=== PATIENT | female | born 1935 | race Caucasian/White ===

== ENCOUNTER 2018-05-21 21:50 | Inpatient (IN) | payer MEDICARE, OTHER ==
--- NOTE | 2018-05-21 23:19 | ULT ---
GALLBLADDER ULTRASOUND: Date: 05/21/18 HISTORY: Right upper quadrant pain. FINDINGS: Real-time imaging of the right upper quadrant demonstrates a mildly distended gallbladder. No gallsto phill are identified. Technologist reports a negative ultrasound Lucas's sign. The common duct is 3.0 mm. Liver measures 17.0 cm in length. The pancreas is obscured. The right kidney is not obstructed. IMPRESSION: No evidence of gallstones. POS: SHELDON
[2018-05-21] MEDS ORDERED: cefTRIAXone\\ROCEPHIN 1 GM VIAL ONE (23:55)
[2018-05-21] MEDS ORDERED: Sodium Chloride 0.9% 100 ML ONE (23:55)
[2018-05-22] MEDS ORDERED: Ondansetron PF 4 MG/2 ML Vial IVP PRN (00:56)
[2018-05-22] MEDS ORDERED: Ondansetron ODT 4 MG TAB PO PRN (00:56)
[2018-05-22 01:31] LABS: HBCM Index 0.08 S/CO (0-0.79); HBSAg Index 0.35 S/CO (0-0.99); Hep A IgM AB Non-Reactive (NonReactive); Hep A IgM S/CO 0.18 S/CO (0-0.79); Hep B Surf Ag Non-Reactive S/CO (NonReactive); Hep C IgG Ab Non-Reactive (NonReactive); Hep C Index 0.05 S/CO (0-0.79); Hepatitis B Core IgM Abs Non-Reactive (NonReactive)
[2018-05-22 01:48] VITALS: BMI 22.1
[2018-05-22] MEDS ORDERED: Prevnar 13-Val Conj/PF 0.5 ML SYRINGE IM ONE (02:15)
[2018-05-22] MEDS: Levothyroxine 100 MCG SDV IVP SCH (05:47)
[2018-05-22] MEDS: Enoxaparin Sodium 30 MG/0.3 ML SYRINGE SC SCH (07:53)
[2018-05-22 08:36] LABS: #Eosinphils 0.1 thou/uL (0.0-0.7); #Lymphocytes 1.1 thou/uL (1.20-3.40); #Monocytes 0.5 thou/uL (0.11-0.59); #Neutrophils 4.1 thou/uL (1.40-6.50); %Basophils 0.7 % (0.0-1.0); %Eosinophils 2.5 % (0.0-10.0); %Lymphocytes 18.9 % (21.0-51.0); %Monocytes 7.8 % (0.0-10.0); %Neutrophils 70.1 % (42.0-75.0); Hemoglobin 12.4 g/dL (12.0-16.0); Mean Corpuscular HGB CONC 32.4 g/dL (32.0-36.0); Mean Corpuscular Hemoglobin 30.3 pg (27.0-31.0); Mean Corpuscular Volume 93.7 fL (78.0-98.0); Platelet Count 196 thou/uL (130-400); White Blood Cell (WBC) Count 5.8 thou/uL (4.8-10.8)
[2018-05-22 08:57] LABS: Anion Gap 15 mmol/L (10-20); BUN (Urea Nitrogen) 18 mg/dL (9.8-20.1); Calc. Creatinine Clearance 36 mL/min (70-130); Calcium 9.8 mg/dL (7.8-10.44); Carbon Dioxide 23 mmol/L (23-31); Chloride 110 mmol/L (98-107); Estimated GFR-MDRD 40; Glucose 88 mg/dL (83-110); Potassium 3.6 mmol/L (3.5-5.1); Sodium 144 mmol/L (136-145)
--- NOTE | 2018-05-22 09:53 | HP ---
PRIMARY CARE DOCTOR: TIME OF EVALUATION: 1 a.m. CODE STATUS: Full code. CHIEF COMPLAINT: Change in mental status. HISTORY OF PRESENT ILLNESS: This is an 82-year-old female patient with past medical history of hypothyroidism, GERD, hypertension, COPD, and dementia, came to the hospital, transferred from [place]. The patient has an episode of change in mental status. Symptoms, as per report, have been getting worse recently. Also, she was found to have high LFTs, urinary tract infections. The patient is unable to give any history. This information has been gathered from ER physician and nursing staff and records. No clear triggers, no alleviating factors. She was found to have a high TSH also. Symptoms are generalized and constant. REVIEW OF SYSTEMS: Unable to obtain. The patient does not cooperate with review. PAST MEDICAL HISTORY/PERSONAL HISTORY: As reported in the HPI. PSYCH HISTORY: Depression, dementia. FAMILY HISTORY: Reviewed and non contributory to current presentation. SOCIAL HISTORY: The patient drinks socially. No drugs. The patient quit smoking more than 10 years ago. ALLERGIES: NO KNOWN DRUG ALLERGIES. REPORTED MEDICATIONS: Unknown. PHYSICAL EXAMINATION: VITAL SIGNS: On presentation, blood pressure 153/78 with heart rate 72, respiratory rate was 16, temperature 97.8, oxygen saturation was 98%. GENERAL APPEARANCE: The patient is lethargic, can answer very simple questions, not great in conversation, disoriented. HEENT: Eyes, normal conjunctivae. Moist oral mucosa. Anicteric. No JVD. RESPIRATORY: Bilateral air entry. No rales. No wheezes. Symmetric expansion. CARDIOVASCULAR: Normal rate, regular rhythm. No murmurs. No gallop. No edema. ABDOMEN: Soft. Normal bowel sounds. MUSCULOSKELETAL: Baseline range of motion and strength. No tenderness. SKIN: Warm, intact. No pallor. No rash. No redness. Peripheral pulses are present. Capillary refill seems to be intact. NEURO: Unable to fully explore. The patient does not cooperate. Does not seems to have any new focal weakness. PSYCH: Unable to explore. The patient is lethargic. DIAGNOSTIC DATA: Abdominal ultrasound was done, it showed no evidence of gallstones. No significant abnormalities. LABORATORY DATA: Labs were reviewed. The patient has a white count of 8, hemoglobin 13.7, MCV 91, platelet count 219. Sodium 145, potassium 3.2, chloride 103, carbon dioxide 25, anion gap 20, BUN 19, creatinine 1.52. Previous admissions, creatinine was 1.3. GFR 33, glucose 144. Lactic acid 0.9. Calcium 11.2, magnesium 3.1. Total bilirubin 0.4, AST 256, ALT 233, alkaline phosphatase 88. Troponin was negative. Serum total protein 9.1, albumin 5.0, globulin 3.1. TSH was 73. Urine was done, and the patient has greater than 50 too numerous to count white count with __ positive leukocyte esterase. Serology for hepatitis was negative. ASSESSMENT AND PLAN: The patient will be placed in the hospital with following medical problems: 1. Acute encephalopathy and also she has dementia. This is a new finding that has been getting worse as per history reported from ER and in records. This seems to be multifactorial. The patient has underlying urinary tract infection and also has a very elevated TSH, could be due to severe hypothyroidism. 2. Severe hypothyroidism. There is no evidence of bradycardia, hypotension, hypothermia, and other factors, so this remains in the differential , we will restart levothyroxine IV for now and then this can be adjusted once the patient is more improved. 3. High liver function tests with AST 256, ALT 233, unclear etiology. Hepatitis panel is negative. Ultrasound is negative. We will monitor. We will treat accordingly. 4. Urinary tract infection with very positive urine. The patient has been started on antibiotics. We will continue for now. Follow cultures. Adjust treatment as per sensitivity. 5. Hyperglycemia of 144, no history of diabetes reported. We will monitor. Could be secondary to poor glucose tolerance. 6. Chronic kidney disease stage 3. The patient has a GFR of 33 and creatinine 1.5. We will monitor kidney function. We will treat accordingly. Might need Nephrology if no improvement. 7. Hypokalemia. Potassium 3.2. We will replace electrolytes as needed. 8. Underlying dementia, unclear how much deterioration of mental status the patient has at this point due to unknown baseline. 9. Deep venous thrombosis prophylaxis. Job ID: [id number] [facility]
[2018-05-22] MEDS: Acetaminophen 325 MG TAB PO PRN (16:05)
--- NOTE | 2018-05-22 16:22 | PDOC.EVN ---
Event Note - Event Note Event Note: Chart reviewed. Pt seen. Feels better, will follow. Continue antibiotics for UTI.
[2018-05-22] MEDS: cefTRIAXone\\ROCEPHIN 1 GM in Sodium Chloride 0.9% 100 ML IVPB SCH (23:33)
[2018-05-23] MEDS: Levothyroxine 100 MCG SDV IVP SCH (05:53)
[2018-05-23] MEDS: Enoxaparin Sodium 30 MG/0.3 ML SYRINGE SC SCH (07:38)
[2018-05-23] MEDS: Acetaminophen 325 MG TAB PO PRN (13:51)
--- NOTE | 2018-05-23 14:10 | PDOC.PN ---
- Subjective Encounter Start Date: 05/23/18 Encounter Start Time: 09:40 Pt seen for followup re: UTI. Feels better. - Objective Resuscitation Status - Order Detail: 05/22/18 00:56 Resuscitation Status Routine Resuscitation Status: FULL: Full Resuscitation MAR Reviewed: Yes Vital Signs & Weight: Vital Signs (12 hours) Temp Pulse Resp BP Pulse Ox 05/23/18 08:00 97 05/23/18 07:41 99.2 F 70 18 159/89 H 97 Weight Weight 141 lb 1.533 oz I&O: 05/22/18 05/23/18 05/24/18 06:59 06:59 06:59 Intake Total 1110 480 Balance 1110 480 Result Diagrams: 05/22/18 08:06 05/22/18 08:06 Additional Labs: labs reviewed by me Phys Exam - Physical Examination Constitutional: NAD HEENT: moist MMs Neck: supple Respiratory: clear to auscultation bilateral Cardiovascular: RRR Gastrointestinal: positive bowel sounds Neurological: moves all 4 limbs Psychiatric: normal affect Dx/Plan (1) UTI (urinary tract infection) Status: Acute Comment: Urine cultures not sent yet, continue antibiotics (2) Acute metabolic encephalopathy Code(s): G93.41 - METABOLIC ENCEPHALOPATHY Status: Acute Comment: Improved (3) Hypothyroidism Code(s): E03.9 - HYPOTHYROIDISM, UNSPECIFIED Status: Chronic Comment: check free T3, free T4 - Plan * . Review of Systems - Review of Systems Cardiovascular: negative: chest pain, palpitations, orthopnea, paroxysmal nocturnal dyspnea, edema, light headedness Gastrointestinal: negative: Nausea, Vomiting, Abdominal Pain, Diarrhea, Constipation, Melena, Hematochezia - Medications/Allergies Allergies/Adverse Reactions: Allergies Allergy/AdvReac Type Severity Reaction Status Date / Time No Known Drug Allergies Allergy Verified 05/22/18 03:24 Medications: Current Medications Acetaminophen (Tylenol) 650 mg PO Q4H PRN PRN Reason: Headache/Fever/Mild Pain (1-3) Last Admin: 05/23/18 13:51 Dose: 650 mg Enoxaparin Sodium (Lovenox) 30 mg SC 0900 [facility] Last Admin: 05/23/18 07:38 Dose: 30 mg Ceftriaxone Sodium 1 gm/ (Sodium Chloride) 100 mls @ 200 mls/hr IVPB Q24HR [facility] Last Admin: 05/22/18 23:33 Dose: 100 mls Levothyroxine Sodium (Synthroid) 50 mcg IVP 0600 [facility] Last Admin: 05/23/18 05:53 Dose: 50 mcg Ondansetron HCl (Zofran Odt) 4 mg PO Q6H PRN PRN Reason: Nausea/Vomiting Ondansetron HCl (Zofran) 4 mg IVP Q6H PRN PRN Reason: Nausea/Vomiting
[2018-05-23 22:52] LABS: Free T4 (Free Thyroxine) Less than 0.40 ng/dL (0.70-1.48)
[2018-05-24] MEDS: cefTRIAXone\\ROCEPHIN 1 GM in Sodium Chloride 0.9% 100 ML IVPB SCH (01:25)
[2018-05-24] MEDS: Levothyroxine 100 MCG SDV IVP SCH (05:45)
[2018-05-24] MEDS: Enoxaparin Sodium 30 MG/0.3 ML SYRINGE SC SCH (08:46)
[2018-05-24 09:51] LABS: #Eosinphils 0.2 thou/uL (0.0-0.7); #Monocytes 0.4 thou/uL (0.11-0.59); #Neutrophils 3.2 thou/uL (1.40-6.50); %Basophils 0.6 % (0.0-1.0); %Eosinophils 3.4 % (0.0-10.0); %Lymphocytes 21.3 % (21.0-51.0); %Monocytes 8.5 % (0.0-10.0); %Neutrophils 66.2 % (42.0-75.0); Hemoglobin 13.3 g/dL (12.0-16.0); Mean Corpuscular HGB CONC 32.8 g/dL (32.0-36.0); Mean Corpuscular Hemoglobin 30.5 pg (27.0-31.0); Mean Platelet Volume 7.8 fL (7.4-10.4); Platelet Count 200 thou/uL (130-400); RBC Distribution Width 13.2 % (11.5-14.5); Red Blood Cell (RBC) Count 4.35 mill/uL (4.20-5.40); White Blood Cell (WBC) Count 4.8 thou/uL (4.8-10.8)
[2018-05-24 10:14] LABS: ALT (SGPT) 162 U/L (8-55); AST (SGOT) 110 U/L (5-34); Albumin 4.4 g/dL (3.4-4.8); Alkaline Phosphatase 67 U/L (40-150); Anion Gap 18 mmol/L (10-20); BUN (Urea Nitrogen) 15 mg/dL (9.8-20.1); Bilirubin, Total 0.4 mg/dL (0.2-1.2); Calc. Creatinine Clearance 41 mL/min (70-130); Calcium 9.9 mg/dL (7.8-10.44); Carbon Dioxide 23 mmol/L (23-31); Chloride 103 mmol/L (98-107); Estimated GFR-MDRD 47; Globulin 2.9 g/dL (2.4-3.5); Glucose 111 mg/dL (83-110); Potassium 3.7 mmol/L (3.5-5.1); Protein, Total 7.3 g/dL (6.0-8.3); Sodium 140 mmol/L (136-145)
--- NOTE | 2018-05-24 13:13 | PDOC.PN ---
- Subjective Encounter Start Date: 05/24/18 Encounter Start Time: 09:20 Pt seen for followup re; UTI. feels well. - Objective Resuscitation Status - Order Detail: 05/22/18 00:56 Resuscitation Status Routine Resuscitation Status: FULL: Full Resuscitation MAR Reviewed: Yes Vital Signs & Weight: Weight Weight 141 lb 1.533 oz I&O: 05/23/18 05/24/18 05/25/18 06:59 06:59 06:59 Intake Total 1110 1310 Balance 1110 1310 Result Diagrams: 05/24/18 09:32 05/24/18 09:32 Additional Labs: labs reviwed by me Phys Exam - Physical Examination Constitutional: NAD HEENT: moist MMs Neck: supple Respiratory: clear to auscultation bilateral Cardiovascular: RRR Gastrointestinal: soft Neurological: moves all 4 limbs Psychiatric: normal affect Dx/Plan (1) UTI (urinary tract infection) Status: Acute Comment: continue ceftriaxone, await urine culture (sent after abx started) (2) Acute metabolic encephalopathy Code(s): G93.41 - METABOLIC ENCEPHALOPATHY Status: Acute Comment: Improved (3) Hypothyroidism Code(s): E03.9 - HYPOTHYROIDISM, UNSPECIFIED Status: Chronic Comment: continue synthroid - Plan * . Review of Systems - Review of Systems Respiratory: negative: Cough, Shortness of Breath, SOB with Excertion, Pleuritic Pain, Wheezing Cardiovascular: negative: chest pain, palpitations, orthopnea, paroxysmal nocturnal dyspnea, edema, light headedness - Medications/Allergies Allergies/Adverse Reactions: Allergies Allergy/AdvReac Type Severity Reaction Status Date / Time No Known Drug Allergies Allergy Verified 05/22/18 03:24 Medications: Current Medications Acetaminophen (Tylenol) 650 mg PO Q4H PRN PRN Reason: Headache/Fever/Mild Pain (1-3) Last Admin: 05/23/18 13:51 Dose: 650 mg Enoxaparin Sodium (Lovenox) 30 mg SC 0900 [facility] Last Admin: 05/24/18 08:46 Dose: 30 mg Ceftriaxone Sodium 1 gm/ (Sodium Chloride) 100 mls @ 200 mls/hr IVPB Q24HR [facility] Last Admin: 05/24/18 01:25 Dose: 100 mls Levothyroxine Sodium (Synthroid) 50 mcg IVP 0600 [facility] Last Admin: 05/24/18 05:45 Dose: 50 mcg Ondansetron HCl (Zofran Odt) 4 mg PO Q6H PRN PRN Reason: Nausea/Vomiting Ondansetron HCl (Zofran) 4 mg IVP Q6H PRN PRN Reason: Nausea/Vomiting
[2018-05-25] MEDS: cefTRIAXone\\ROCEPHIN 1 GM in Sodium Chloride 0.9% 100 ML IVPB SCH (00:14)
[2018-05-25] MEDS: Levothyroxine 100 MCG SDV IVP SCH (05:42)
[2018-05-25 06:09] LABS: #Basophils 0.1 thou/uL (0.0-0.2); #Eosinphils 0.2 thou/uL (0.0-0.7); #Lymphocytes 1.3 thou/uL (1.20-3.40); #Monocytes 0.5 thou/uL (0.11-0.59); #Neutrophils 3.5 thou/uL (1.40-6.50); %Basophils 1.1 % (0.0-1.0); %Eosinophils 4.1 % (0.0-10.0); %Lymphocytes 23.9 % (21.0-51.0); %Monocytes 8.7 % (0.0-10.0); %Neutrophils 62.3 % (42.0-75.0); Hemoglobin 13.1 g/dL (12.0-16.0); Mean Corpuscular HGB CONC 33.3 g/dL (32.0-36.0); Mean Corpuscular Hemoglobin 31.3 pg (27.0-31.0); Mean Corpuscular Volume 94.2 fL (78.0-98.0); Mean Platelet Volume 7.6 fL (7.4-10.4); Platelet Count 191 thou/uL (130-400); RBC Distribution Width 13.1 % (11.5-14.5); Red Blood Cell (RBC) Count 4.19 mill/uL (4.20-5.40); White Blood Cell (WBC) Count 5.6 thou/uL (4.8-10.8)
[2018-05-25 06:33] LABS: ALT (SGPT) 179 U/L (8-55); AST (SGOT) 134 U/L (5-34); Albumin 4.5 g/dL (3.4-4.8); Alkaline Phosphatase 68 U/L (40-150); Anion Gap 15 mmol/L (10-20); BUN (Urea Nitrogen) 14 mg/dL (9.8-20.1); Bilirubin, Total 0.3 mg/dL (0.2-1.2); Calc. Creatinine Clearance 41 mL/min (70-130); Calcium 9.6 mg/dL (7.8-10.44); Carbon Dioxide 27 mmol/L (23-31); Chloride 103 mmol/L (98-107); Estimated GFR-MDRD 48; Globulin 2.5 g/dL (2.4-3.5); Glucose 83 mg/dL (83-110); Potassium 3.5 mmol/L (3.5-5.1); Sodium 141 mmol/L (136-145)
[2018-05-25] MEDS: Enoxaparin Sodium 30 MG/0.3 ML SYRINGE SC SCH (09:05)
--- NOTE | 2018-05-25 16:32 | PDOC.PN ---
- Subjective Encounter Start Date: 05/25/18 Encounter Start Time: 08:20 Pt seen for followup re; acute metabolic encephalopathy. Feels well. - Objective Resuscitation Status - Order Detail: 05/22/18 00:56 Resuscitation Status Routine Resuscitation Status: FULL: Full Resuscitation MAR Reviewed: Yes Vital Signs & Weight: Vital Signs (12 hours) Temp Pulse Resp BP Pulse Ox 05/25/18 12:25 99.0 F 70 18 167/88 H 96 05/25/18 08:00 96 05/25/18 07:26 98.0 F 67 18 130/80 96 Weight Weight 141 lb 1.533 oz I&O: 05/24/18 05/25/18 05/26/18 06:59 06:59 06:59 Intake Total 1310 1080 Balance 1310 1080 Result Diagrams: 05/25/18 05:53 05/25/18 05:53 Additional Labs: Labs reviewed by me Phys Exam - Physical Examination Constitutional: NAD HEENT: moist MMs Neck: supple Cardiovascular: RRR Gastrointestinal: soft Neurological: moves all 4 limbs Psychiatric: normal affect Dx/Plan (1) Acute metabolic encephalopathy Code(s): G93.41 - METABOLIC ENCEPHALOPATHY Status: Acute Comment: Improved, ? secondary to hypothyroidism (2) Hypothyroidism Code(s): E03.9 - HYPOTHYROIDISM, UNSPECIFIED Status: Chronic Comment: on synthroid (3) UTI (urinary tract infection) Status: Resolved Comment: final urine culture negative, discontinue antibiotics and observe - Plan * . Review of Systems - Review of Systems Cardiovascular: negative: chest pain, palpitations, orthopnea, paroxysmal nocturnal dyspnea, edema, light headedness Gastrointestinal: negative: Nausea, Vomiting, Abdominal Pain, Diarrhea, Constipation, Melena, Hematochezia - Medications/Allergies Allergies/Adverse Reactions: Allergies Allergy/AdvReac Type Severity Reaction Status Date / Time No Known Drug Allergies Allergy Verified 05/22/18 03:24 Medications: Current Medications Acetaminophen (Tylenol) 650 mg PO Q4H PRN PRN Reason: Headache/Fever/Mild Pain (1-3) Last Admin: 05/23/18 13:51 Dose: 650 mg Enoxaparin Sodium (Lovenox) 30 mg SC 0900 [facility] Last Admin: 05/25/18 09:05 Dose: 30 mg Ceftriaxone Sodium 1 gm/ (Sodium Chloride) 100 mls @ 200 mls/hr IVPB Q24HR [facility] Last Admin: 05/25/18 00:14 Dose: 100 mls Levothyroxine Sodium (Synthroid) 50 mcg IVP 0600 [facility] Last Admin: 05/25/18 05:42 Dose: 50 mcg Ondansetron HCl (Zofran Odt) 4 mg PO Q6H PRN PRN Reason: Nausea/Vomiting Ondansetron HCl (Zofran) 4 mg IVP Q6H PRN PRN Reason: Nausea/Vomiting
[2018-05-25 20:17] VITALS: TEMP 98.1
[2018-05-26] MEDS: Levothyroxine 100 MCG SDV IVP SCH (06:25)
[2018-05-26 07:24] VITALS: BP 157/82
[2018-05-26] MEDS: Enoxaparin Sodium 30 MG/0.3 ML SYRINGE SC SCH (07:59)
[2018-05-26 08:09] LABS: #Basophils 0.1 thou/uL (0.0-0.2); #Eosinphils 0.2 thou/uL (0.0-0.7); #Lymphocytes 1.2 thou/uL (1.20-3.40); #Monocytes 0.5 thou/uL (0.11-0.59); #Neutrophils 3.6 thou/uL (1.40-6.50); %Basophils 1.6 % (0.0-1.0); %Eosinophils 4.4 % (0.0-10.0); %Lymphocytes 21.9 % (21.0-51.0); %Monocytes 8.5 % (0.0-10.0); %Neutrophils 63.6 % (42.0-75.0); Hemoglobin 13.3 g/dL (12.0-16.0); Mean Corpuscular HGB CONC 32.8 g/dL (32.0-36.0); Mean Corpuscular Hemoglobin 30.7 pg (27.0-31.0); Mean Corpuscular Volume 93.5 fL (78.0-98.0); Mean Platelet Volume 7.9 fL (7.4-10.4); Platelet Count 195 thou/uL (130-400); RBC Distribution Width 13.2 % (11.5-14.5); Red Blood Cell (RBC) Count 4.35 mill/uL (4.20-5.40); White Blood Cell (WBC) Count 5.6 thou/uL (4.8-10.8)
[2018-05-26 08:36] LABS: ALT (SGPT) 190 U/L (8-55); AST (SGOT) 132 U/L (5-34); Albumin 4.5 g/dL (3.4-4.8); Alkaline Phosphatase 68 U/L (40-150); Anion Gap 13 mmol/L (10-20); BUN (Urea Nitrogen) 16 mg/dL (9.8-20.1); Bilirubin, Total 0.4 mg/dL (0.2-1.2); Calc. Creatinine Clearance 39 mL/min (70-130); Calcium 10.2 mg/dL (7.8-10.44); Carbon Dioxide 28 mmol/L (23-31); Chloride 104 mmol/L (98-107); Estimated GFR-MDRD 45; Globulin 2.8 g/dL (2.4-3.5); Glucose 104 mg/dL (83-110); Potassium 3.8 mmol/L (3.5-5.1); Protein, Total 7.3 g/dL (6.0-8.3); Sodium 141 mmol/L (136-145)
--- NOTE | 2018-05-26 22:55 | DIS ---
DATE OF ADMISSION: 05/21/2018 DATE OF DISCHARGE: 05/26/2018 PRIMARY CARE PROVIDER: Dr. Denver Kaur. DISCHARGE DIAGNOSES: 1. Acute metabolic encephalopathy. 2. Hypothyroidism. 3. Urinary tract infection, suspected. 4. Transaminitis. 5. Acute kidney injury. CONDITION OF PATIENT ON THE DAY OF DISCHARGE: Stable. I assessed Ms. Gomez on the day of discharge. She denies any chest pain or shortness of breath. Vital signs are stable. S1 and S2 are heard, regular. Lungs are clear to auscultation bilaterally. DISCHARGE MEDICATIONS: Synthroid 50 mcg daily. HOSPITAL COURSE: Ms. Gomez is a pleasant 82-year-old lady, who was admitted to [facility] on May 22, 2018, for acute metabolic encephalopathy, likely secondary to urinary tract infection. She was treated with empiric intravenous antibiotics. Urine cultures were not sent at the time of admission. They were subsequently sent, but did not show any growth at 48 hours. She improved clinically. She was also found to be hypothyroid with a TSH of 73.34, free T4 less than 0.4, and free T3 less than 1. She also had transaminitis with AST 132 and ALT 190. She was advised to have her LFTs and creatinine rechecked in 3 to 5 days time. She was admitted with a creatinine level of 1.52. It improved to 1.17 on the day of discharge. She had hepatitis serologies done at the time of admission, which was negative. She is being discharged home in a stable condition. She plans to seek long-term care placement following discharge. Many thanks for allowing me to participate in your patient's care. Please feel free to contact me with any questions or concerns. On the day of discharge, she has sodium 141, potassium 3.8, creatinine 1.17, AST 132, ALT 190. White count 5600, hemoglobin 13.3, and platelet count 195,000. DISCHARGE DESTINATION: Home. TIME SPENT: Total amount of time spent coordinating this discharge: 33 minutes. Job ID: [id number]
== END 2018-05-26 16:03 | disposition home or self-care (01) | DRG 689 ==
LOC: ERS 21:50 → T4-A 23:48
PROVIDERS: ADMIT Hospitalist; ATTEND Hospitalist
DX: N39.0 Urinary tract infection, site not specified (principal); G93.41 Metabolic encephalopathy; N17.9 Acute kidney failure, unspecified; G93.40 Encephalopathy, unspecified; F03.90 Unspecified dementia, unspecified severity, without behavioral disturbance, psychotic disturbance, mood disturbance, and anxiety; E03.9 Hypothyroidism, unspecified; R73.9 Hyperglycemia, unspecified; K21.9 Gastro-esophageal reflux disease without esophagitis; J44.9 Chronic obstructive pulmonary disease, unspecified; F32.9 Major depressive disorder, single episode, unspecified; N18.3 Chronic kidney disease, stage 3 (moderate); E87.6 Hypokalemia; R74.0 Nonspecific elevation of levels of transaminase and lactic acid dehydrogenase [LDH]; Z87.891 Personal history of nicotine dependence
CPT/HCPCS: 36415; 76705; 80048; 80053; 80074; 84439; 84481; 85025; 87086; 96365; J0696; J1650; J7050

== ENCOUNTER 2020-06-07 04:01 | Inpatient (IN) | payer MEDICARE, MEDICAID ==
[2020-06-07] MEDS ORDERED: Ketamine 50 MG/ML (10ML VIAL) ONE (04:38)
[2020-06-07] MEDS ORDERED: Fentanyl 100 MCG/2 ML VIAL ONE (06:05)
[2020-06-07] MEDS ORDERED: Ondansetron ODT 4 MG TAB PO PRN (06:40)
[2020-06-07] MEDS ORDERED: Dextrose 5% in Water 1,000 ML IV PRN (06:40)
[2020-06-07] MEDS ORDERED: Morphine 2 MG/ML VIAL SLOW IVP PRN (06:40)
[2020-06-07] MEDS ORDERED: hydrALAZINE 20 MG/ML VIAL SLOW IVP PRN (06:40)
[2020-06-07] MEDS ORDERED: Ondansetron PF 4 MG/2 ML Vial IVP PRN (06:40)
[2020-06-07] MEDS ORDERED: Dextrose 50% Abboject 50 ML SYRINGE SLOW IVP PRN (06:40)
[2020-06-07] MEDS ORDERED: traMADol HCl 50 MG TAB PO PRN (06:47)
[2020-06-07] MEDS ORDERED: Cyclobenzaprine 10 MG TAB PO PRN (06:47)
[2020-06-07] MEDS ORDERED: Ibuprofen 200 MG TAB PO PRN (07:10)
[2020-06-07 07:11] LABS: SARS-CoV-2 NAA Rapid Test Not Detected (NotDetected)
[2020-06-07] MEDS ORDERED: Potassium Chloride 40 MEQ in Sodium Chloride 0.9% 250 ML 250 ML IVPB SCH (07:15)
[2020-06-07] MEDS ORDERED: hydrALAZINE 20 MG/ML VIAL ONE (07:27)
[2020-06-07] MEDS ORDERED: Potassium Chloride 20 MEQ/100 ML PREMIX BAG ONE (07:27)
[2020-06-07] MEDS: Sodium Chloride 0.9% 1,000 ML IV SCH ×2 (07:35→18:45)
[2020-06-07] MEDS ORDERED: CEFAZOLIN 2 GM in Premix Bag 1 BAG IVPB SCH (07:45)
[2020-06-07] MEDS: Senokot S 8.6-50 MG TAB PO SCH ×2 (08:14→20:56)
[2020-06-07] MEDS: Polyethylene Glycol 3350 17 GM Packet PO SCH (08:14)
[2020-06-07] MEDS ORDERED: traMADol HCl 50 MG TAB ONE (08:17)
[2020-06-07] MEDS ORDERED: Acetaminophen 500 MG TAB ONE (08:18)
[2020-06-07] MEDS: Acetaminophen 500 MG TAB PO SCH ×3 (08:24→20:56)
[2020-06-07] MEDS: traMADol HCl 50 MG TAB PO SCH ×3 (08:25→21:00)
[2020-06-07] MEDS ORDERED: Lidocaine 1% PF 5 ML VIAL ONE (09:17)
[2020-06-07] MEDS ORDERED: PROPOFOL 200 MG/20 ML VIAL ONE (09:17)
[2020-06-07] MEDS ORDERED: Glycopyrrolate 0.2 MG/ML 5 ML SYRINGE ONE (09:17)
[2020-06-07] MEDS ORDERED: Rocuronium Bromide 10 MG/ML (10ML VIAL) ONE (09:17)
[2020-06-07] MEDS ORDERED: PHENYLEPHRINE-NS 100 MCG/ML 10 ML SYRINGE ONE (09:17)
[2020-06-07] MEDS: Famotidine 20 MG TAB PO SCH ×2 (10:35→20:56)
[2020-06-07] MEDS ORDERED: Promethazine HCl 25 MG/ML VIAL SLOW IVP PRN (15:11)
[2020-06-07] MEDS ORDERED: Promethazine HCl 25 MG/ML VIAL IM PRN (15:11)
[2020-06-07] MEDS ORDERED: PACU-Morphine 4MG/ML VIAL SLOW IVP PRN (15:11)
[2020-06-07] MEDS ORDERED: Ondansetron HCl/PF 4 MG/2 ML Vial IVP PRN (15:11)
[2020-06-07] MEDS ORDERED: Phenylephrine 1% Nasal Spray 15 ML BOT ONE (17:51)
[2020-06-07] MEDS ORDERED: Lactated Ringer's 250 ML IV SCH (19:00)
[2020-06-07] MEDS ORDERED: PHENYLEPHRINE-NS 100 MCG/ML 10 ML SYRINGE IVP SCH (19:00)
[2020-06-07] MEDS: CEFAZOLIN 2 GM in Premix Bag 1 BAG IVPB SCH (20:53)
[2020-06-08 00:23] VITALS: BMI 26.6
[2020-06-08] MEDS: CEFAZOLIN 2 GM in Premix Bag 1 BAG IVPB SCH ×2 (03:47→14:23)
[2020-06-08] MEDS: Sodium Chloride 0.9% 1,000 ML IV SCH ×2 (03:47→16:44)
[2020-06-08] MEDS: Acetaminophen 500 MG TAB PO SCH ×5 (03:48→20:19)
[2020-06-08] MEDS: traMADol HCl 50 MG TAB PO SCH ×5 (03:48→20:19)
[2020-06-08] MEDS: Levothyroxine Sodium 125 MCG TAB PO SCH (05:52)
[2020-06-08 06:14] LABS: Hemoglobin 9.4 g/dL (12.0-16.0); Mean Corpuscular HGB CONC 31.6 g/dL (32.0-36.0); Mean Corpuscular Hemoglobin 30.5 pg (27.0-31.0); Mean Corpuscular Volume 96.7 fL (78.0-98.0); Mean Platelet Volume 7.8 fL (7.4-10.4); Platelet Count 140 thou/uL (130-400); RBC Distribution Width 12.9 % (11.5-14.5); Red Blood Cell (RBC) Count 3.07 mill/uL (4.20-5.40); White Blood Cell (WBC) Count 7.3 thou/uL (4.8-10.8)
[2020-06-08 06:40] LABS: Anion Gap 14 mmol/L (10-20); BUN (Urea Nitrogen) 13 mg/dL (9.8-20.1); Calc. Creatinine Clearance 52 mL/min (70-130); Calcium 8.3 mg/dL (7.8-10.44); Carbon Dioxide 21 mmol/L (23-31); Chloride 107 mmol/L (98-107); Glucose 125 mg/dL (83-110); Magnesium 1.8 mg/dL (1.6-2.6); Phosphorus 3.5 mg/dL (2.3-4.7); Potassium 3.9 mmol/L (3.5-5.1); Sodium 138 mmol/L (136-145)
[2020-06-08] MEDS ORDERED: Aspirin 81 mg Enteric Coated Tablet PO SCH (09:00)
[2020-06-08] MEDS: Senokot S 8.6-50 MG TAB PO SCH ×2 (10:00→20:13)
[2020-06-08] MEDS: Losartan 25 MG TAB PO SCH (10:00)
[2020-06-08] MEDS: Polyethylene Glycol 3350 17 GM Packet PO SCH (10:00)
[2020-06-08] MEDS: Famotidine 20 MG TAB PO SCH ×2 (10:00→20:14)
[2020-06-08] MEDS: Citalopram 20 MG TAB PO SCH (10:01)
[2020-06-08] MEDS: Divalproex Sodium 250 MG (DR) TAB PO SCH ×4 (10:02→20:19)
[2020-06-08] MEDS ORDERED: Sodium Chloride 0.9% 1,000 ML IV SCH (14:45)
[2020-06-08] MEDS ORDERED: Sodium Chloride 0.9% 500 ML IVPB SCH (18:45)
[2020-06-08 20:43] LABS: Bilirubin Negative (Negative); Blood, Urine 3+ (Negative); Clarity Turbid (Clear); Glucose, Urine (Dipstick) Normal (Negative); Ketone, Urine Trace mg/dL (Negative); Leukocyte 25 Leu/uL (Negative); Nitrite Negative (Negative); Protein, Urine (Dipstick) 100 mg/dL (Neg-Trace); RBC/HPF Greater than 50 HPF (0-3); Specific Gravity, Urine 1.043 (1.002-1.036); Squamous Epithelial None Seen HPF (0-3); Urobilinogen Normal mg/dL (Less than 2); WBC/HPF 21-50 HPF (0-3)
[2020-06-08 20:54] LABS: Bacteria/HPF Rare-Few HPF (None Seen)
[2020-06-09] MEDS: traMADol HCl 50 MG TAB PO SCH ×4 (03:26→21:01)
[2020-06-09] MEDS: Acetaminophen 500 MG TAB PO SCH ×4 (03:26→20:59)
[2020-06-09] MEDS: Levothyroxine Sodium 125 MCG TAB PO SCH ×2 (05:42→09:14)
[2020-06-09 05:56] LABS: #Eosinphils 0.2 thou/uL (0.0-0.7); #Lymphocytes 1.4 thou/uL (1.20-3.40); #Monocytes 1.1 thou/uL (0.11-0.59); %Basophils 0.2 % (0.0-1.0); %Eosinophils 2.6 % (0.0-10.0); %Lymphocytes 15.6 % (21.0-51.0); %Monocytes 12.6 % (0.0-10.0); Mean Corpuscular HGB CONC 33.4 g/dL (32.0-36.0); Mean Corpuscular Hemoglobin 31.8 pg (27.0-31.0); Platelet Count 127 thou/uL (130-400); RBC Distribution Width 12.9 % (11.5-14.5); White Blood Cell (WBC) Count 8.7 thou/uL (4.8-10.8)
[2020-06-09 05:57] LABS: Hemoglobin 7.9 g/dL (12.0-16.0); Mean Corpuscular HGB CONC 32.3 g/dL (32.0-36.0); Mean Corpuscular Hemoglobin 30.7 pg (27.0-31.0); Mean Platelet Volume 8.1 fL (7.4-10.4); Platelet Count 128 thou/uL (130-400); RBC Distribution Width 12.8 % (11.5-14.5); Red Blood Cell (RBC) Count 2.57 mill/uL (4.20-5.40); White Blood Cell (WBC) Count 8.6 thou/uL (4.8-10.8)
[2020-06-09 06:17] LABS: Anion Gap 13 mmol/L (10-20); BUN (Urea Nitrogen) 13 mg/dL (9.8-20.1); CK (CPK) 514 U/L (29-168); Calc. Creatinine Clearance 58 mL/min (70-130); Calcium 8.2 mg/dL (7.8-10.44); Carbon Dioxide 20 mmol/L (23-31); Chloride 111 mmol/L (98-107); Glucose 98 mg/dL (83-110); Magnesium 1.9 mg/dL (1.6-2.6); Phosphorus 2.1 mg/dL (2.3-4.7); Potassium 3.8 mmol/L (3.5-5.1); Sodium 140 mmol/L (136-145)
[2020-06-09] MEDS ORDERED: Potassium Phosphate 30 MMOL, Magnesium Sulfate 2 GM in Sodium Chloride 0.9% 250 ML IVPB SCH (09:00)
[2020-06-09] MEDS ORDERED: Magnesium Sulfate 2 GM in Sodium Chloride 0.9% 100 ML IVPB SCH (09:00)
[2020-06-09] MEDS: Losartan 25 MG TAB PO SCH (09:04)
[2020-06-09] MEDS: Nitrofurantoin Monohyd/M-Cryst 100 MG CAP PO SCH ×2 (09:04→21:00)
[2020-06-09] MEDS: Citalopram 20 MG TAB PO SCH (09:14)
[2020-06-09] MEDS: Divalproex Sodium 250 MG (DR) TAB PO SCH ×3 (09:21→21:01)
[2020-06-09] MEDS: Famotidine 20 MG TAB PO SCH ×2 (09:48→21:00)
[2020-06-09] MEDS: Polyethylene Glycol 3350 17 GM Packet PO SCH (09:48)
[2020-06-09] MEDS: Senokot S 8.6-50 MG TAB PO SCH ×2 (09:49→21:00)
[2020-06-09] MEDS ORDERED: Furosemide 20 MG/2 ML VIAL SLOW IVP SCH (17:30)
[2020-06-10] MEDS: Acetaminophen 500 MG TAB PO SCH ×4 (05:18→22:26)
[2020-06-10] MEDS: traMADol HCl 50 MG TAB PO SCH ×4 (05:18→22:46)
[2020-06-10 05:42] LABS: #Basophils 0.1 thou/uL (0.0-0.2); #Eosinphils 0.4 thou/uL (0.0-0.7); #Lymphocytes 1.4 thou/uL (1.20-3.40); #Monocytes 0.9 thou/uL (0.11-0.59); #Neutrophils 5.3 thou/uL (1.40-6.50); %Basophils 0.9 % (0.0-1.0); %Eosinophils 5.1 % (0.0-10.0); %Lymphocytes 17.3 % (21.0-51.0); %Neutrophils 65.7 % (42.0-75.0); Hemoglobin 7.4 g/dL (12.0-16.0); Mean Corpuscular HGB CONC 33.7 g/dL (32.0-36.0); Mean Corpuscular Hemoglobin 31.9 pg (27.0-31.0); Mean Corpuscular Volume 94.6 fL (78.0-98.0); Platelet Count 141 thou/uL (130-400); RBC Distribution Width 12.9 % (11.5-14.5); Red Blood Cell (RBC) Count 2.32 mill/uL (4.20-5.40)
[2020-06-10 06:06] LABS: Anion Gap 13 mmol/L (10-20); BUN (Urea Nitrogen) 11 mg/dL (9.8-20.1); Calc. Creatinine Clearance 63 mL/min (70-130); Calcium 7.9 mg/dL (7.8-10.44); Carbon Dioxide 23 mmol/L (23-31); Chloride 109 mmol/L (98-107); Glucose 89 mg/dL (83-110); Magnesium 2.2 mg/dL (1.6-2.6); Phosphorus 2.6 mg/dL (2.3-4.7); Potassium 3.5 mmol/L (3.5-5.1); Sodium 141 mmol/L (136-145)
[2020-06-10] MEDS: Levothyroxine Sodium 125 MCG TAB PO SCH (06:12)
[2020-06-10] MEDS ORDERED: Potassium Chloride 20 MEQ TAB PO SCH (06:30)
[2020-06-10] MEDS ORDERED: Potassium Phosphate 30 MMOL in Sodium Chloride 0.9% 500 ML IVPB SCH (07:15)
[2020-06-10] MEDS: Citalopram 20 MG TAB PO SCH (08:32)
[2020-06-10] MEDS: Nitrofurantoin Monohyd/M-Cryst 100 MG CAP PO SCH ×2 (08:32→22:26)
[2020-06-10] MEDS: Divalproex Sodium 250 MG (DR) TAB PO SCH ×3 (08:33→22:46)
[2020-06-10] MEDS: Polyethylene Glycol 3350 17 GM Packet PO SCH (08:33)
[2020-06-10] MEDS: Losartan 25 MG TAB PO SCH (08:33)
[2020-06-10] MEDS: Senokot S 8.6-50 MG TAB PO SCH ×2 (08:33→22:26)
[2020-06-10] MEDS: Famotidine 20 MG TAB PO SCH ×2 (08:33→22:25)
[2020-06-10] MEDS: Ferrous Sulfate 325 MG TAB PO SCH (22:26)
[2020-06-11] MEDS: Acetaminophen 500 MG TAB PO SCH ×4 (03:46→22:01)
[2020-06-11] MEDS: traMADol HCl 50 MG TAB PO SCH ×4 (03:47→22:05)
[2020-06-11] MEDS: Levothyroxine Sodium 125 MCG TAB PO SCH (05:41)
[2020-06-11 06:20] LABS: #Eosinphils 0.6 thou/uL (0.0-0.7); #Lymphocytes 1.3 thou/uL (1.20-3.40); #Monocytes 0.9 thou/uL (0.11-0.59); #Neutrophils 5.3 thou/uL (1.40-6.50); %Basophils 0.4 % (0.0-1.0); %Eosinophils 7.1 % (0.0-10.0); %Lymphocytes 16.4 % (21.0-51.0); %Monocytes 10.7 % (0.0-10.0); %Neutrophils 65.4 % (42.0-75.0); Hemoglobin 7.1 g/dL (12.0-16.0); Mean Corpuscular HGB CONC 33.4 g/dL (32.0-36.0); Mean Corpuscular Hemoglobin 31.4 pg (27.0-31.0); Mean Corpuscular Volume 94.1 fL (78.0-98.0); Mean Platelet Volume 7.4 fL (7.4-10.4); Platelet Count 171 thou/uL (130-400); RBC Distribution Width 12.8 % (11.5-14.5); Red Blood Cell (RBC) Count 2.25 mill/uL (4.20-5.40); White Blood Cell (WBC) Count 8.1 thou/uL (4.8-10.8)
[2020-06-11] MEDS ORDERED: Iron Polysaccharides Complex 150 MG CAP PO SCH (08:00)
[2020-06-11] MEDS: Nitrofurantoin Monohyd/M-Cryst 100 MG CAP PO SCH (09:23)
[2020-06-11] MEDS: Famotidine 20 MG TAB PO SCH ×2 (09:23→22:00)
[2020-06-11] MEDS: Citalopram 20 MG TAB PO SCH (09:23)
[2020-06-11] MEDS: Losartan 25 MG TAB PO SCH (09:23)
[2020-06-11] MEDS: Ascorbic Acid 500 mg Chewable Tablet PO SCH (09:23)
[2020-06-11] MEDS: Divalproex Sodium 250 MG (DR) TAB PO SCH ×3 (09:24→22:04)
[2020-06-11] MEDS: Ferrous Sulfate 325 MG TAB PO SCH ×2 (09:24→22:00)
[2020-06-11] MEDS: Polyethylene Glycol 3350 17 GM Packet PO SCH (09:24)
[2020-06-11] MEDS: Senokot S 8.6-50 MG TAB PO SCH ×2 (09:25→22:00)
[2020-06-12] MEDS: Acetaminophen 500 MG TAB PO SCH ×4 (05:04→21:35)
[2020-06-12] MEDS: traMADol HCl 50 MG TAB PO SCH ×4 (05:05→21:36)
[2020-06-12 05:28] LABS: #Eosinphils 0.6 thou/uL (0.0-0.7); #Lymphocytes 1.4 thou/uL (1.20-3.40); #Monocytes 0.9 thou/uL (0.11-0.59); #Neutrophils 4.8 thou/uL (1.40-6.50); %Basophils 0.1 % (0.0-1.0); %Eosinophils 7.3 % (0.0-10.0); %Lymphocytes 18.4 % (21.0-51.0); %Monocytes 11.8 % (0.0-10.0); %Neutrophils 62.4 % (42.0-75.0); Hemoglobin 7.6 g/dL (12.0-16.0); Mean Corpuscular HGB CONC 33.1 g/dL (32.0-36.0); Mean Corpuscular Hemoglobin 31.2 pg (27.0-31.0); Mean Corpuscular Volume 94.5 fL (78.0-98.0); Mean Platelet Volume 7.5 fL (7.4-10.4); Platelet Count 212 thou/uL (130-400); RBC Distribution Width 12.7 % (11.5-14.5); Red Blood Cell (RBC) Count 2.42 mill/uL (4.20-5.40); White Blood Cell (WBC) Count 7.7 thou/uL (4.8-10.8)
[2020-06-12 05:53] LABS: Anion Gap 12 mmol/L (10-20); BUN (Urea Nitrogen) 10 mg/dL (9.8-20.1); Calc. Creatinine Clearance 60 mL/min (70-130); Calcium 8.4 mg/dL (7.8-10.44); Carbon Dioxide 27 mmol/L (23-31); Chloride 107 mmol/L (98-107); Glucose 96 mg/dL (83-110); Magnesium 2.1 mg/dL (1.6-2.6); Phosphorus 3.3 mg/dL (2.3-4.7); Potassium 3.6 mmol/L (3.5-5.1); Sodium 142 mmol/L (136-145)
[2020-06-12] MEDS: Levothyroxine Sodium 125 MCG TAB PO SCH (06:57)
[2020-06-12] MEDS ORDERED: Potassium Chloride 20 MEQ TAB PO SCH (07:00)
[2020-06-12] MEDS: Polyethylene Glycol 3350 17 GM Packet PO SCH (07:39)
[2020-06-12] MEDS: Famotidine 20 MG TAB PO SCH ×2 (08:40→21:35)
[2020-06-12] MEDS: Aspirin 81 mg Enteric Coated Tablet PO SCH ×2 (08:40→21:35)
[2020-06-12] MEDS: Losartan 25 MG TAB PO SCH (08:40)
[2020-06-12] MEDS: Ascorbic Acid 500 mg Chewable Tablet PO SCH (08:41)
[2020-06-12] MEDS: Ferrous Sulfate 325 MG TAB PO SCH ×2 (08:42→21:36)
[2020-06-12] MEDS: Citalopram 20 MG TAB PO SCH (08:43)
[2020-06-12] MEDS: Senokot S 8.6-50 MG TAB PO SCH ×2 (08:43→21:36)
[2020-06-12] MEDS: Divalproex Sodium 250 MG (DR) TAB PO SCH ×3 (08:47→21:40)
[2020-06-12] MEDS ORDERED: Donepezil HCl 10 MG TAB PO SCH (13:30)
[2020-06-13] MEDS: traMADol HCl 50 MG TAB PO SCH ×4 (04:36→20:34)
[2020-06-13] MEDS: Acetaminophen 500 MG TAB PO SCH ×4 (04:36→20:33)
[2020-06-13] MEDS: Levothyroxine Sodium 125 MCG TAB PO SCH (06:09)
[2020-06-13 06:11] LABS: Hemoglobin 7.1 g/dL (12.0-16.0); Mean Corpuscular HGB CONC 32.2 g/dL (32.0-36.0); Mean Corpuscular Hemoglobin 30.6 pg (27.0-31.0); Mean Corpuscular Volume 95.1 fL (78.0-98.0); Mean Platelet Volume 7.6 fL (7.4-10.4); Platelet Count 220 thou/uL (130-400); RBC Distribution Width 12.9 % (11.5-14.5); Red Blood Cell (RBC) Count 2.33 mill/uL (4.20-5.40); White Blood Cell (WBC) Count 8.4 thou/uL (4.8-10.8)
[2020-06-13 06:48] LABS: Band 6 % (5-11); Eosinophils 9 % (0-10); Lymphocytes 20 % (21-51); MDiff Complete? YES; Monocytes 16 % (0-10); Neutrophil 49 % (42-75); Platelet Morphology Comment Appears Adequate
[2020-06-13] MEDS: Losartan 25 MG TAB PO SCH (08:22)
[2020-06-13] MEDS: Ascorbic Acid 500 mg Chewable Tablet PO SCH (08:22)
[2020-06-13] MEDS: Ferrous Sulfate 325 MG TAB PO SCH ×2 (08:22→20:32)
[2020-06-13] MEDS: Famotidine 20 MG TAB PO SCH ×2 (08:22→20:32)
[2020-06-13] MEDS: Aspirin 81 mg Enteric Coated Tablet PO SCH ×2 (08:23→20:32)
[2020-06-13] MEDS: Citalopram 20 MG TAB PO SCH (08:23)
[2020-06-13] MEDS: Senokot S 8.6-50 MG TAB PO SCH ×2 (08:24→20:34)
[2020-06-13] MEDS: Polyethylene Glycol 3350 17 GM Packet PO SCH (08:24)
[2020-06-13] MEDS: Donepezil HCl 10 MG TAB PO SCH (08:28)
[2020-06-13] MEDS: Divalproex Sodium 250 MG (DR) TAB PO SCH ×3 (08:29→20:33)
[2020-06-13 19:03] LABS: Hemoglobin 8.7 g/dL (12.0-16.0)
[2020-06-14] MEDS: traMADol HCl 50 MG TAB PO SCH ×2 (03:09→08:35)
[2020-06-14] MEDS: Acetaminophen 500 MG TAB PO SCH ×2 (03:09→08:26)
[2020-06-14] MEDS: Levothyroxine Sodium 125 MCG TAB PO SCH (05:03)
[2020-06-14 05:21] LABS: #Eosinphils 0.4 thou/uL (0.0-0.7); #Lymphocytes 1.3 thou/uL (1.20-3.40); #Monocytes 1.2 thou/uL (0.11-0.59); #Neutrophils 5.7 thou/uL (1.40-6.50); %Basophils 0.3 % (0.0-1.0); %Lymphocytes 14.6 % (21.0-51.0); %Monocytes 14.1 % (0.0-10.0); %Neutrophils 66.1 % (42.0-75.0); Hemoglobin 8.7 g/dL (12.0-16.0); Mean Corpuscular HGB CONC 32.2 g/dL (32.0-36.0); Mean Corpuscular Hemoglobin 30.3 pg (27.0-31.0); Mean Corpuscular Volume 94.1 fL (78.0-98.0); Mean Platelet Volume 7.3 fL (7.4-10.4); Platelet Count 246 thou/uL (130-400); Red Blood Cell (RBC) Count 2.88 mill/uL (4.20-5.40); White Blood Cell (WBC) Count 8.6 thou/uL (4.8-10.8)
[2020-06-14] MEDS: Donepezil HCl 10 MG TAB PO SCH (08:25)
[2020-06-14] MEDS: Ascorbic Acid 500 mg Chewable Tablet PO SCH (08:25)
[2020-06-14] MEDS: Aspirin 81 mg Enteric Coated Tablet PO SCH (08:25)
[2020-06-14] MEDS: Ferrous Sulfate 325 MG TAB PO SCH (08:26)
[2020-06-14] MEDS: Citalopram 20 MG TAB PO SCH (08:26)
[2020-06-14] MEDS: Senokot S 8.6-50 MG TAB PO SCH (08:27)
[2020-06-14] MEDS: Polyethylene Glycol 3350 17 GM Packet PO SCH (08:35)
[2020-06-14] MEDS: Losartan 25 MG TAB PO SCH (08:35)
[2020-06-14] MEDS: Famotidine 20 MG TAB PO SCH (08:36)
[2020-06-14] MEDS: Divalproex Sodium 250 MG (DR) TAB PO SCH (09:02)
[2020-06-14 11:15] VITALS: BP 109/64; TEMP 98.4
== END 2020-06-14 14:14 | DRG 522 ==
LOC: ERS 04:01 → ERHOLD 06:37 → SURG A 18:42
PROVIDERS: ADMIT Surgery; ATTEND Surgery
PROC: 0SRB0JZ Replacement of Left Hip Joint with Synthetic Substitute, Open Approach (ICD-10-PCS; principal; 2020-06-07)
PROC: 30233N1 Transfusion of Nonautologous Red Blood Cells into Peripheral Vein, Percutaneous Approach (ICD-10-PCS; 2020-06-13)
DX: S72.032A Displaced midcervical fracture of left femur, initial encounter for closed fracture (principal); Z20.822 Contact with and (suspected) exposure to COVID-19; Z23 Encounter for immunization; W19.XXXA Unspecified fall, initial encounter; Y92.129 Unspecified place in nursing home as the place of occurrence of the external cause; F03.90 Unspecified dementia, unspecified severity, without behavioral disturbance, psychotic disturbance, mood disturbance, and anxiety; E03.9 Hypothyroidism, unspecified; I12.9 Hypertensive chronic kidney disease with stage 1 through stage 4 chronic kidney disease, or unspecified chronic kidney disease; N18.9 Chronic kidney disease, unspecified; E87.6 Hypokalemia; S42.032A Displaced fracture of lateral end of left clavicle, initial encounter for closed fracture; F32.9 Major depressive disorder, single episode, unspecified; E87.5 Hyperkalemia; Z85.3 Personal history of malignant neoplasm of breast; Z79.899 Other long term (current) drug therapy; Z87.891 Personal history of nicotine dependence; Z79.890 Hormone replacement therapy
CPT/HCPCS: 0240U; 36415; 36430; 51702; 71045; 72170; 80048; 81001; 82550; 83735; 84100; 85025; 85027; 86850; 86900; 86901; 87086; 90471; 90732; 94760; 96374; 96375; C1776; G0009; G0390; J0360; J0690; J1940; J2405; J2704; J3010; J3475; J3480; J7030; J7050; P9016